=== PATIENT | male | born 1960 | race Caucasian/White ===

== ENCOUNTER → 2023-12-28 06:19 | Day surgery (SDC) | payer OTHER, SELFPAY | LOC: GI 06:19 | PROVIDERS: ATTENDING PHYSICIAN Specialist | DX: K22.70 Barrett's esophagus without dysplasia (principal); K31.89 Other diseases of stomach and duodenum; R14.0 Abdominal distension (gaseous) | CPT/HCPCS: 43239; 88305; 88342 ==